=== PATIENT | female | born 1985 | race Caucasian/White ===

== ENCOUNTER 2017-04-30 14:02 | Inpatient (IN) | payer OTHER ==
[2017-04-30] MEDS ORDERED: Dinoprostone* 10 MG VAG.SUPP VAGINAL ONE (15:35)
[2017-04-30] MEDS ORDERED: Nalbuphine* 20 MG/ML 1 ML VIAL IM PRN (23:46)
[2017-05-01] MEDS ORDERED: Promethazine INJ(RESTRICTED)* 25 MG/ML 1 ML VIAL IM ONE (00:15)
[2017-05-01 09:42] LABS: Hematocrit 31 % (35-47); Hemoglobin 10.6 g/dl (12.0-16.0); Mean Corpuscular HGB Conc 35 g/dl (31-36); Mean Corpuscular Hemoglobin 28 pg (27-31); Mean Corpuscular Volume 81 fL (80-97); Mean Platelet Volume 8 um3 (7.4-10.4); Red Blood Count 3.77 10^6/ul (4.0-5.4); Red Cell Distribution Width 14 % (10.5-15)
[2017-05-01] MEDS ORDERED: Oxytocin in LR* 20 UNITS/1,000 ML BAG IVPB SCH ×2 (10:00→20:00)
[2017-05-01] MEDS ORDERED: OBEPIDURAL* 250 ML ONE (10:57)
[2017-05-01] MEDS ORDERED: fentaNYL* 50 MCG/ML 2 ML VIAL (100 MCG VIAL) ONE (10:57)
[2017-05-01] MEDS ORDERED: Famotidine TAB* 20 MG PO PRN (11:43)
[2017-05-01] MEDS ORDERED: Phenylephrine IV* 40 MCG/ML 10 ML SYRINGE IV PUSH PRN (11:43)
[2017-05-01] MEDS ORDERED: Sodium Citrate/Citric Acid* 15 ML UDC PO PRN (11:43)
[2017-05-01] MEDS: Phenylephrine IV* 40 MCG/ML 10 ML SYRINGE IV PUSH PRN ×5 (11:53→12:07)
[2017-05-01] MEDS ORDERED: OBEPIDURAL* 250 ML EPIDURAL SCH (12:00)
[2017-05-01] MEDS ORDERED: Witch Hazel PAD* JAR TOPICAL PRN (19:08)
[2017-05-01] MEDS: Docusate CAP* 100 MG PO SCH (22:07)
--- NOTE | 2017-05-01 23:42 | PTEDU ---
Patient Name: MIKE WATSON MIKE WATSON selected video: Follow Me Mum: [facility] [place] [facility] Successful to view on 7 at 11:40:30 PM [id number]
[2017-05-02] MEDS: Ibuprofen TAB* 600 MG PO PRN ×4 (00:49→20:29)
[2017-05-02] MEDS: Acetaminophen TAB* 325 MG PO PRN ×5 (00:49→20:29)
[2017-05-02] MEDS: Dibucaine 1% 28.35 GM TUBE PR PRN ×2 (00:50→23:23)
[2017-05-02 07:01] LABS: Hematocrit 27 % (35-47); Hemoglobin 9.5 g/dl (12.0-16.0); Mean Corpuscular HGB Conc 35 g/dl (31-36); Mean Corpuscular Hemoglobin 29 pg (27-31); Mean Corpuscular Volume 83 fL (80-97); Mean Platelet Volume 9 um3 (7.4-10.4); Red Blood Count 3.33 10^6/ul (4.0-5.4); Red Cell Distribution Width 14 % (10.5-15); White Blood Count 11.5 10^3/ul (3.5-10.8)
[2017-05-02] MEDS: Docusate CAP* 100 MG PO SCH ×3 (09:52→20:29)
[2017-05-02] MEDS ORDERED: Ferrous Gluconate TAB* 324 MG TAB ONE (09:53)
[2017-05-02] MEDS ORDERED: Ferrous Sulfate TAB* 325 MG ONE (20:23)
[2017-05-03] MEDS: Ibuprofen TAB* 600 MG PO PRN (08:27)
[2017-05-03] MEDS: Docusate CAP* 100 MG PO SCH (08:27)
[2017-05-03] MEDS ORDERED: Ferrous Gluconate TAB* 324 MG TAB ONE (08:51)
[2017-05-03] MEDS: Acetaminophen TAB* 325 MG PO PRN (08:58)
[2017-05-03] MEDS ORDERED: Ferrous Gluconate TAB* 324 MG TAB PO SCH (09:00)
[2017-05-03 09:10] VITALS: BP 88/47
== END 2017-05-03 10:33 | disposition home or self-care (01) | DRG 775 ==
LOC: MCHOBOUT 14:02 → MCHOB 15:27
PROVIDERS: ADMIT Midwife; ATTEND Nurse Practitioner
PROC: 10E0XZZ Delivery of Products of Conception, External Approach (ICD-10-PCS; principal; 2017-05-01)
PROC: 0KQM0ZZ Repair Perineum Muscle, Open Approach (ICD-10-PCS; 2017-05-01)
PROC: 3E0P7VZ Introduction of Hormone into Female Reproductive, Via Natural or Artificial Opening (ICD-10-PCS; 2017-05-01)
DX: O36.5930 Maternal care for other known or suspected poor fetal growth, third trimester, not applicable or unspecified (principal); D64.9 Anemia, unspecified; O70.1 Second degree perineal laceration during delivery; O90.81 Anemia of the puerperium; Z3A.39 39 weeks gestation of pregnancy; Z37.0 Single live birth; Z14.1 Cystic fibrosis carrier
CPT/HCPCS: 36415; 85025; 86850; 86900; 86901; 88307; A9270-GY; J2300; J2550; J3010